=== PATIENT | female | born 1960 | race Caucasian/White ===

== ENCOUNTER 2018-11-05 09:09 | Inpatient (IN) ==
[2018-11-05 09:35] LABS: BASO# 0.04 X1000 (0.0-0.2); BASO% 0.7 % (0.0-0.8); EOS# 0.03 X1000 (0.0-0.7); EOS% 0.5 % (0.0-10.0); HEMATOCRIT 42.7 % (37.0-47.0); HEMOGLOBIN 13.8 g/dL (12.0-16.0); IMM GRAN# 0.01 X1000 (0.0-0.04); IMM GRAN% 0.2 % (0.0-0.5); LYMPH# 1.44 X1000 (1.2-3.4); LYMPH% 23.8 % (20.5-51.1); MCHC 32.3 g/dL (33-37); MONO# 0.59 X1000 (0.11-0.59); MONO% 9.7 % (1.7-9.3); MPV 10.4 FL (7.4-10.4); NEUT# 3.95 X1000 (1.4-6.5); NEUT% 65.1 % (42.2-75.2); PLT 320 X1000 (130-400); RBC 4.45 XMIL (4.2-5.4); RDW 15.6 % (11.5-14.5); WBC 6.06 X1000 (4.8-10.8)
--- NOTE | 2018-11-05 09:47 | PROVIDER DOCUMENTATION ---
HPI-General Adult - General Chief Complaint: Altered Mental Status Stated Complaint: ALTERED MENTAL STATUS Time Seen by Provider: 11/05/18 09:29 Source: patient, family Allergies/Adverse Reactions: Patient Allergies Allergy/AdvReac Type Severity Reaction Status Date / Time codeine Allergy Severe ANAPHYLAXIS Verified 11/05/18 09:15 Home Medications: Home Medication List Medication Instructions Recorded Confirmed Last Taken Type Aspirin/Acetaminophen [Goody's 1 packet PO BID 11/05/18 11/05/18 Unknown History Body Pain Powder Pkt] Potassium Chloride 10% Liquid 20 meq PO DAILY #240 udc 11/07/18 Unknown Rx - History of Present Illness -Gen Adult Nature of Presenting Problems: 58yof present to ER with daughter with c/o frontal headache x 2 years. Reports this is daily, denies pain at present. Also reports last 6 months she has been confused and "losing days". Pt denies any recent trauma. Daughter reports hx of salicylate toxicity due to taking an "adult dose aspirin". Pt A&Ox4 at present. Location of Pain/Injury: reports: head Pain Radiation: reports: no radiation Quality of Pain: reports: aching, throbbing Onset/Duration: reports: other (2 years) Timing: reports: gone now, intermittent Associated Symptoms: reports: dizziness, headaches, malaise. denies: arm pain, back/neck pain, chest pain, fever/chills, nausea, shortness of breath, vomiting Review of Systems - Adult - REVIEW OF SYSTEMS - ADULT Constitutional: reports: no symptoms reported. denies: chills, fever Eyes: reports: no symptoms reported Ears, Nose, Mouth & Throat: reports: no symptoms reported. denies: ear pain, tinnitus Cardiovascular: reports: no symptoms reported. denies: chest pain Respiratory: reports: no symptoms reported. denies: shortness of breath Gastrointestinal: reports: no symptoms reported. denies: nausea, vomiting Genitourinary: reports: no symptoms reported Musculoskeletal: reports: no symptoms reported Integumentary: reports: no symptoms reported Neurological: reports: see HPI, dizziness/vertigo, headache/migraines. denies: numbness, paresthesia, slurred speech, syncope Psychiatric: reports: no symptoms reported Endocrine: reports: no symptoms reported Hematologic/Lymphatic: reports: no symptoms reported Allergic/Immunologic: reports: no symptoms reported All Other Systems: Reviewed and Negative Past History - Adult - PAST MEDICAL HISTORY-ADULT Review of Records: reports: Old Records Reviewed, Nursing Assessment Review, Medications Reviewed, Social history reviewed & non-contributory. Major Childhood Illnesses: reports: denies history Cardiovascular: reports: denies history Respiratory: reports: COPD Gastrointestinal: reports: denies history Obstetrical/Gynecological: reports: denies history Genitourinary: reports: denies history Musculoskeletal: reports: denies history Neurological: reports: denies history Psychiatric: reports: depression Endocrine/Immune: reports: denies history Other Conditions: reports: denies history - PRIOR SURGERIES/PROCEDURES Surgical/Procedure History: reports: other (esophageal ) - IMMUNIZATION STATUS Childhood Immunizations: See Nurse Assessment Flu Vaccine: See Nurse Assessment - FAMILY HISTORY Family History: reviewed, not pertinent Physical Exam-General - PHYSICAL EXAM-ADULT Initial Vital Signs Reviewed: Yes - CONSTITUTIONAL General Appearance: alert, no apparent distress, thin (very) - EYES Eyes: PERRL/EOMI, pink conjunctivae - HEAD, EARS, NOSE, MOUTH & THROAT HENMT: moist mucous membranes, normal ENT inspection. negative: angioedema - NECK Neck: non-tender, full range of motion, supple, normal inspection. negative: C- spine tenderness, lymphadenopathy, meningismus - RESPIRATORY Respiratory: lungs clear, normal breath sounds, no respiratory distress, no accessory muscle use - CARDIOVASCULAR Cardiovascular: regular rate, rhythm - GASTROINTESTINAL (ABDOMEN) Abdominal Exam: normal bowel sounds - LYMPHATIC Lymphatic: no adenopathy - MUSCULOSKELETAL Back Exam: normal inspection Extremity: normal range of motion, normal gait, normal inspection, normal capillary refill. negative: deformity, erythema - SKIN Integumentary: normal color, warm/dry. negative: diaphoresis, jaundice, pallor - NEUROLOGIC Neurologic: grossly normal, no motor/sensory deficits - PSYCHIATRIC Psych/Mental Status: normal mood/affect, normal thought content, normal thought process, oriented x 3 Progress - PLAN OF CARE/RESULTS Progress/Plan/Lab Results: Vital Signs - 8 hr 11/05/18 09:10 Temperature 98.7 F Pulse Rate 97 H Respiratory Rate 18 Blood Pressure 129/79 O2 Sat by Pulse Oximetry 98 Laboratory Results - last 24 hr 11/05/18 11/05/18 09:30 09:35 WBC 6.06 RBC 4.45 Hgb 13.8 Hct 42.7 MCV 96.0 MCH 31.0 MCHC 32.3 L RDW Std Deviation 15.6 H Plt Count 320 MPV 10.4 Immature Gran % (Auto) 0.2 Neut % (Auto) 65.1 Lymph % (Auto) 23.8 Morris % (Auto) 9.7 H Eos % (Auto) 0.5 Baso % (Auto) 0.7 Immature Gran # (Auto) 0.01 Neut # (Auto) 3.95 Lymph # (Auto) 1.44 Morris # (Auto) 0.59 Eos # (Auto) 0.03 Baso # (Auto) 0.04 POC Glucose 121 H Orders Category Date Time Status CT HEAD W/O CONTRAST [CT] Stat Exams 11/05/18 09:42 Ordered ACETAMINOPHEN [TDM] Stat Lab 11/05/18 09:42 Uncollected ALCOHOL BLOOD Stat Lab 11/05/18 09:42 Uncollected CBC WITH DIFF [HEME] Stat Lab 11/05/18 09:30 Completed CK PROFILE [SP CHEM] Stat Lab 11/05/18 09:42 Uncollected CMP [COMPREHENSIVE METABOLIC PANEL] [CHEM] Stat Lab 11/05/18 09:30 Received SALICYLATES [TDM] Stat Lab 11/05/18 09:42 Uncollected TROPONIN T Stat Lab 11/05/18 09:42 Ordered URINE DRUG SCREEN PL Stat Lab 11/05/18 09:42 Uncollected ua [URINALYSIS PL W/POSS RFLX CULT] [URINALYSIS] Stat Lab 11/05/18 09:38 Ordered EKG [EKG] Stat Ther 11/05/18 09:17 Ordered Result Diagrams: 11/07/18 04:55 11/07/18 04:55 - REASSESSMENT Reassessment #1 Time Reassessed: 10:30 (reviewed results with pt and plan for admission) - EKG 1 Time of EKG reading by physician:: 09:32 EKG Read and Signed by:: Adam Espana EKG Interpretation (*Must complete 3 of following elements*): Abnormal Rate: 69 Rhythm: NSR, possible L atrial enlargement - CT/MRI 1 CT Study: Head Impression: See EMR Report (FINDINGS: The ventricles and sulci are normal in size and contour. No intracranial mass or hemorrhage. The skull is intact. The sinuses mastoids and middle ears are clear. IMPRESSION: Negative exam. This exam was performed using automated exposure control, adjustment of mA or kV according to patient size, and/or use of iterative reconstruction technique Electronically signed by Nas Jo 11/05/2018 10:17 AM) - CONSULTS/PCP/HOSPITALIST Notification #1 *Consult/PCP/Hospitalist*: Dr Talbert Time Discussed: 10:48 (requests call Poison Control) Consult Disposition: Will see in ED, Admit Departure - Departure Date of Disposition Decision: 11/05/18 Time of Disposition Decision: 10:24 DIAGNOSIS: Hyponatremia Acetylsalicylic acid (aspirin) overdose Qualifiers: Encounter type: initial encounter Injury intent: accidental or unintentional Qualified Code(s): T39.011A - Poisoning by aspirin, accidental (unintentional), initial encounter Altered mental status Qualifiers: Altered mental status type: unspecified Qualified Code(s): R41.82 - Altered mental status, unspecified Disposition: ADMITTED INPATIENT 09 Certified Medical Emergency: Emergent Condition: Fair - Critical Care Note This patient required my direct & personal management of CC.: No Attestation - Physician/ JEISON Attestation Patient care was provided by Advanced Practice Provider:: Yes Advanced Practice Provider:: Ayden Vu Advanced Practice Provider documentation review:: The Mid-level provider documentation, treatment plan and medical decision making was reviewed by the physician who agrees with all treatment and medical decision making by the P. The physician spent face to face time with patient:: No Advanced Practice Provider documentation review:: Supervising physician onsite and consulted in the evaluation and care of this patient. The physician did not have a face to face encounter with the patient.
[2018-11-05 09:55] LABS: AGAP 12; ALBUMIN 4.5 g/dL (3.5-5.0); ALKALINE PHOSPHATASE 60 U/L (32-104); BUN 26 mg/dL (8-22); CHLORIDE 101 mmol/L (98-107); COSMO 285; CREATININE 0.6 mg/dL (0.5-0.9); ESTIMATED GFR > 60; GLUCOSE 114 mg/dL (70-104); GOT 25 U/L (10-30); GPT 15 U/L (10-36); POTASSIUM 2.8 mmol/L (3.5-5.1); SODIUM 140 mmol/L (136-145); TCO2 27 mmol/L (25-35); TOTAL PROTEIN 7.5 g/dL (6.3-8.3)
[2018-11-05 10:02] LABS: BILIRUBIN URINE NEGATIVE (NEGATIVE); BLOOD URINE TRACE (NEGATIVE); CLARITY CLEAR (CLEAR); COLOR YELLOW; GLUCOSE URINE NEGATIVE (NEGATIVE); KETONE URINE 1+(Small) mg/dL (NEGATIVE); LEUKOCYTES URINE 1+ (NEGATIVE); NITRITE URINE NEGATIVE (NEGATIVE); PH URINE 6.5; PROTEIN URINE 1+(30 mg/dL) mg/dL (NEGATIVE); URINE BACTERIA 1+ /HFP; URINE CAST NONE SEEN /LPF; URINE CRYSTAL NONE SEEN /HPF; URINE EPITHELIAL CELLS <10 /HPF (<10); URINE RBC <10 /HPF (<10); URINE SOURCE CLEAN CATCH; URINE YEAST NONE SEEN /HPF; UROBILINOGEN URINE 4 mg/dL
[2018-11-05 10:10] LABS: UR AMPHETAMINES QUAL NONE DETECTED (NONE DETECT); UR BARBITUATES QUAL NONE DETECTED (NONE DETECT); UR BENZODIAZEPIN QUAL PRESUMPTIVE POSITIVE (NONE DETECT); UR CANNABINOIDS QUAL NONE DETECTED (NONE DETECT); UR COCAINE QUAL NONE DETECTED (NONE DETECT); UR METHADONE QUAL NONE DETECTED (NONE DETECT); UR METHAMPHETAMINE QUAL NONE DETECTED (NONE DETECT); UR OPIATES QUAL NONE DETECTED (NONE DETECT); UR OXYCODONE QUAL NONE DETECTED (NONE DETECT); UR PCP QUAL NONE DETECTED (NONE DETECT); UR PROPOXYPHENE QUAL NONE DETECTED (NONE DETECT); UR TCA QUAL NONE DETECTED (NONE DETECT)
[2018-11-05 10:10] LABS: ACETAMINOPHEN 4.7 ug/mL (10-30); SALICYLATES 19.96 mg/dL (3-10)
--- NOTE | 2018-11-05 10:14 | EKG Report ---
Test Performed on : 11/05/2018 09:32:25 AM Test Reason : AMS Blood Pressure : / mmHG Vent. Rate : 069 BPM Atrial Rate : 069 BPM P-R Int : 144 ms QRS Dur : 096 ms QT Int : 404 ms P-R-T Axes : 065 005 044 degrees QTc Int : 432 ms Normal sinus rhythm. Possible Left atrial enlargement RSR' or QR pattern in V1 suggests right ventricular conduction delay Cannot rule out Anterior infarct , age undetermined Abnormal ECG No previous ECGs available Unconfirmed Result
--- NOTE | 2018-11-05 10:19 | Diag Imaging Result Doc PS360 ---
CT HEAD W/O CONTRAST - 11/05/2018 INDICATION: ams, headache COMPARISON: 06/14/2015 FINDINGS: The ventricles and sulci are normal in size and contour. No intracranial mass or hemorrhage. The skull is intact. The sinuses mastoids and middle ears are clear. IMPRESSION: Negative exam. This exam was performed using automated exposure control, adjustment of mA or kV according to patient size, and/or use of iterative reconstruction technique Electronically signed by Nas Jo 11/05/2018 10:17 AM
[2018-11-05] MEDS ORDERED: POTASSIUM CHLORIDE 40 MEQ in NS 1,000 ML IV ONE (10:23)
[2018-11-05 11:55] LABS: BE 2.3 mmoll (-2.0-2.0); BLOOD TYPE VENOUS; HCO3-(ACT) 25.6 mmoll (22-27); PCO2(98.6) 43 mmHg (40-60); PO2(98.6) 27 mmHg (30-55); SAMPLE BLOOD; SAO2 56.5 % (40.0-85.0); pH(98.6) 7.41 (7.32-7.43)
[2018-11-05 12:01] LABS: AGAP 12; BUN 25 mg/dL (8-22); CALCIUM 8.6 mg/dL (8.8-10.2); CHLORIDE 104 mmol/L (98-107); COSMO 287; CREATININE 0.4 mg/dL (0.5-0.9); ESTIMATED GFR > 60; GLUCOSE 94 mg/dL (70-104); POTASSIUM 2.8 mmol/L (3.5-5.1); SODIUM 142 mmol/L (136-145); TCO2 26 mmol/L (25-35)
[2018-11-05 12:09] LABS: URINE SOURCE CLEAN CATCH
[2018-11-05 12:12] LABS: CLARITY CLEAR (CLEAR); COLOR YELLOW
[2018-11-05 12:13] LABS: BILIRUBIN URINE NEGATIVE (NEGATIVE); BLOOD URINE TRACE (NEGATIVE); GLUCOSE URINE NEGATIVE (NEGATIVE); KETONE URINE 2+(Moderate) mg/dL (NEGATIVE); LEUKOCYTES URINE 1+ (NEGATIVE); NITRITE URINE NEGATIVE (NEGATIVE); PH URINE 6.5; PROTEIN URINE 1+(30 mg/dL) mg/dL (NEGATIVE); UROBILINOGEN URINE 4 mg/dL
[2018-11-05 12:20] LABS: URINE BACTERIA 1+ /HFP; URINE CAST NONE SEEN /LPF; URINE CRYSTAL NONE SEEN /HPF; URINE EPITHELIAL CELLS <10 /HPF (<10); URINE RBC <10 /HPF (<10); URINE YEAST NONE SEEN /HPF
[2018-11-05] MEDS ORDERED: ZOFRAN IV PRN (13:14)
[2018-11-05] MEDS ORDERED: SODIUM CHLORIDE 0.9% INJ SCH (13:14)
[2018-11-05] MEDS: PEPCID IV SCH (14:57)
--- NOTE | 2018-11-05 17:32 | HISTORY AND PHYSICAL ---
PRIMARY CARE PROVIDER: None. CHIEF COMPLAINT: Altered mental status. HISTORY OF PRESENT ILLNESS: Ms. Junior is a 58-year-old female who carries a past medical history of esophageal strictures, status post dilatations, COPD, situational depression, chronic headaches, gastritis, anemia, and tobacco abuse. The patient reports that she has been having some delusions, headache, and dizziness and she lost 2 days this week. Per the daughter, this has been ongoing for more than a year. Only home medication she takes is Goody powders 4 to 5 on any given day. She denies any bleeding issues. No bright red or dark tarry stools. She has not been coughing up any coffee-grounds emesis or bright red blood. No nosebleeds. Her only complaint was a frontal lobe headache for the past 2 years, as well as some intermittent issues with swallowing. That is why she does not take pills and relies on her Goody Powders. She has a history of salicylate toxicity after taking adult aspirin. Workup in the ED revealed a salicylate level of 19. Recheck was down to 15. She did have a potassium of 2.8, which is being replenished. Patient states she is not able to swallow any pills. However, she is positive for benzodiazepine, and Poison Control was alerted. We continue to follow their orders. The goal is to keep the potassium above 4 as well as the urine pH above 7.5. Urine pH is currently 6.5. Potassium is 2.8. Ms. Junior is currently alert and oriented, follows commands, moves all extremities, and answers all questions appropriately. She will be admitted to [facility] for further evaluation and treatment. Head CT was a negative exam. PAST MEDICAL HISTORY: 1. 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 2. Esophageal stricture status post dilatations. 3. COPD. 4. Gastritis. 5. Anemia. 6. Situational depression. 7. Chronic headache. PAST SURGICAL HISTORY: 1. Esophageal dilatations x2. 2. Endometriosis surgery. SOCIAL HISTORY: She smokes a pack a day. No alcohol or illicit drug use. She is disabled. She is and has 4 children. ALLERGIES: Codeine, with anaphylaxis. HOME MEDICATIONS: Goody powders. REVIEW OF SYSTEMS: Twelve-point review of systems completed and negative except for those mentioned in HPI. PHYSICAL EXAMINATION: VITAL SIGNS: Temperature is 98.4 degrees, heart rate 59, respirations 16, blood pressure 118/58, O2 is 98% on room air. GENERAL: Ms. Junior is a 58, thin, frail-appearing, female, lying on the bed in no acute distress. HEENT: Atraumatic, normocephalic. PERRL. NECK: Supple. Trachea midline. CARDIOVASCULAR: S1, S2 appreciated. No murmurs, gallops, rubs noted. RESPIRATORY: Lung sounds clear bilaterally. GI: Soft, nontender, nondistended. Positive bowel sounds in 4 quadrants. EXTREMITIES: Lower extremities negative for edema. Bilateral pedal pulses are palpable. DIAGNOSTIC DATA: Head CT negative exam. EKG, normal sinus rhythm. ASSESSMENT AND PLAN: 1. Salicylate toxicity. Poison Control has been contacted. We are following their recommendations. Try to keep her urine pH above 7.5 as well as her potassium greater than 4. She does report some delusional with headache and dizziness with loss of 2 days. Her toxicity appears to be chronic as she has been taking 4 to 5 Goody powders per day for several years now with a H/O salicylate toxicity in the past. We will continue IV fluids with KCl. Monitor her serum salicylate level as well as her urine pH and potassium. 2. Hypokalemia. Continue with supplementation. 3. Clinical dehydration. We will continue with IV fluids. 4. Intermittent dysphagia. The patient does have history of esophageal stricture with dilatations x2. We will do a bedside swallow and do a diet per their recommendations. 5. Anemia. Hemoglobin and hematocrit is currently stable. 6. Chronic obstructive pulmonary disease, not in exacerbation. 7. History of gastritis. We will do IV PPI b.i.d. 8. Further recommendations to follow physician evaluation, laboratory, and diagnostic data. Dictated by MARIALUISA Yadav for Jose Anne MD cc: Jose Anne MD [facility]
[2018-11-05] MEDS: NS + KCL 20 MEQ 1,000 ML IV SCH (18:49)
--- NOTE | 2018-11-06 01:09 | HISTORY AND PHYSICAL ---
CHIEF COMPLAINT: Altered mental status. HISTORY OF PRESENT ILLNESS: The patient is a 58-year-old male who presented to the ER via her family. She apparently has had a headache for the past 2 years and frequently over takes medications. She has apparently been taking large amounts of Goody powders lately. The daughter notes that she had some altered mental status and brought her to the ER where upon lab work she was noted to have an elevated salicylate level. We will admit her to the hospital, place her on protocol, and we will follow. cc: Jose Anne MD
[2018-11-06] MEDS: NS + KCL 20 MEQ 1,000 ML IV SCH ×3 (02:29→22:14)
[2018-11-06] MEDS: PEPCID IV SCH ×2 (02:30→14:00)
[2018-11-06 06:23] LABS: BASO# 0.03 X1000 (0.0-0.2); BASO% 0.6 % (0.0-0.8); EOS# 0.04 X1000 (0.0-0.7); EOS% 0.9 % (0.0-10.0); HEMATOCRIT 38.1 % (37.0-47.0); HEMOGLOBIN 11.9 g/dL (12.0-16.0); IMM GRAN# 0.01 X1000 (0.0-0.04); IMM GRAN% 0.2 % (0.0-0.5); LYMPH# 1.23 X1000 (1.2-3.4); LYMPH% 26.2 % (20.5-51.1); MCH 30.4 PG (27-31); MCHC 31.2 g/dL (33-37); MCV 97.4 FL (81-99); MONO# 0.51 X1000 (0.11-0.59); MONO% 10.9 % (1.7-9.3); NEUT# 2.88 X1000 (1.4-6.5); NEUT% 61.2 % (42.2-75.2); PLT 240 X1000 (130-400); RBC 3.91 XMIL (4.2-5.4); RDW 15.6 % (11.5-14.5)
[2018-11-06 06:44] LABS: AGAP 9; ALBUMIN 3.5 g/dL (3.5-5.0); ALKALINE PHOSPHATASE 46 U/L (32-104); BUN 13 mg/dL (8-22); CHLORIDE 110 mmol/L (98-107); COSMO 286; CREATININE 0.3 mg/dL (0.5-0.9); ESTIMATED GFR > 60; GLUCOSE 84 mg/dL (70-104); GOT 19 U/L (10-30); GPT 10 U/L (10-36); MAGNESIUM 1.6 mg/dL (1.5-2.7); POTASSIUM 3.3 mmol/L (3.5-5.1); SODIUM 144 mmol/L (136-145); TCO2 24 mmol/L (25-35); TOTAL PROTEIN 5.8 g/dL (6.3-8.3)
[2018-11-06] MEDS ORDERED: KLOR-CON PO ONE (06:56)
[2018-11-06] MEDS ORDERED: POTASSIUM CHLORIDE 20% LIQUID PO ONE (09:34)
[2018-11-06 16:40] LABS: AGAP 9; BUN 7 mg/dL (8-22); CHLORIDE 110 mmol/L (98-107); COSMO 278; CREATININE 0.4 mg/dL (0.5-0.9); ESTIMATED GFR > 60; GLUCOSE 103 mg/dL (70-104); POTASSIUM 3.6 mmol/L (3.5-5.1); SODIUM 140 mmol/L (136-145); TCO2 22 mmol/L (25-35)
--- NOTE | 2018-11-07 01:00 | PROGRESS NOTE ---
DATE: 11/06/2018 SUBJECTIVE: The patient notes that she is feeling a lot better. Denies any fevers or chills currently. Denies headaches or blurred vision. PHYSICAL EXAMINATION: Vital Signs: Reviewed. Temperature 97.8 degrees, pulse 67, respiratory rate 18, BP 123/62. General: The patient is awake, currently in no distress. HEENT: Normocephalic. Neck: Supple. Cardiovascular: Regular rate. No murmurs. Chest: Clear and nonlabored. Extremities: Moves all extremities. Neurologic: No changes. ASSESSMENT: 1. Salicylate toxicity. 2. Hypokalemia, we will replace. 3. Dehydration. 4. Chronic anemia. 5. History of gastritis. PLAN: Overall the patient is continuing to improve. We will replace potassium. Continue to follow. Plan per Poison Control. Hopefully home over the next day or 2. cc: Jose Anne MD
[2018-11-07] MEDS: PEPCID IV SCH (01:53)
[2018-11-07] MEDS: NS + KCL 20 MEQ 1,000 ML IV SCH (05:09)
[2018-11-07 06:42] LABS: HEMATOCRIT 36.8 % (37.0-47.0); HEMOGLOBIN 11.6 g/dL (12.0-16.0); MCH 30.4 PG (27-31); MCHC 31.5 g/dL (33-37); MCV 96.6 FL (81-99); MPV 10.8 FL (7.4-10.4); RBC 3.81 XMIL (4.2-5.4); WBC 3.99 X1000 (4.8-10.8)
[2018-11-07 06:48] LABS: AGAP 9; ALBUMIN 3.6 g/dL (3.5-5.0); ALKALINE PHOSPHATASE 46 U/L (32-104); BUN 4 mg/dL (8-22); CALCIUM 8.1 mg/dL (8.8-10.2); CHLORIDE 109 mmol/L (98-107); COSMO 278; CREATININE 0.3 mg/dL (0.5-0.9); ESTIMATED GFR > 60; GLUCOSE 89 mg/dL (70-104); GOT 17 U/L (10-30); GPT 9 U/L (10-36); POTASSIUM 3.5 mmol/L (3.5-5.1); SODIUM 141 mmol/L (136-145); TCO2 24 mmol/L (25-35); TOTAL PROTEIN 5.7 g/dL (6.3-8.3)
[2018-11-07 07:15] VITALS: BP 138/75
[2018-11-07] MEDS ORDERED: PNEUMOVAX 23 IM ONE (09:00)
--- NOTE | 2018-11-08 07:57 | DISCHARGE SUMMARY ---
ADMISSION DATE: 11/05/2018 DISCHARGE DATE: 11/07/2018 PERTINENT PROCEDURES: Head CT. Negative exam. DISCHARGE DIAGNOSES: 1. Salicylate toxicity, resolved. 2. Hypokalemia, improving. 3.5 on the day of discharge. He will be sent home on liquid potassium. 3. Dehydration. The patient was hydrated with IV fluids resolved. 4. Chronic anemia stable. 5. History of gastritis and esophageal stricture. The patient will need to follow up as an outpatient once she gets her Medicare. HOSPITAL COURSE: Briefly, Ms. Junior is a 58-year-old female with a past medical history of esophageal stricture status post dilatation, COPD, situational depression, chronic headache, gastritis, anemia and tobacco abuse. She reported that for quite some time her daughters report maybe 2 years, she has had some issues with chronic headaches so she takes 4 to 5 Goody powders per day secondary to her not being able to swallow pills. She reported some delusions, headache, and dizziness, and she lost 2 days this past week. She was found to have a toxic salicylate level. Poison Control was contacted. Labs were ordered per their orders. The salicylate level is now back to normal. Her potassium has stabilized. She has had constant ringing in her ears for years now. We believe it is because of all the Goody Powders she has ingested over the years. She has had a stable hospital course, and is being discharged back home today to follow up with her PCP. VITAL SIGNS: Temperature 97.6, heart rate 63, respirations 16, blood pressure 138/75, 02 99% on room air. DISCHARGE DIET: Regular. DISCHARGE MEDICATIONS: Potassium chloride 10% liquid 20 mEq p.o. daily. PERTINENT PROCEDURES: Head CT was a negative exam. FOLLOW UP: Ms. Junior is being discharged back home with self care. She has been educated to avoid taking so many Goody Powders. She had been encouraged to find and follow up with her Primary Care Provider now that her Medicaid is about to kick in as well as follow up with GI with her issues of intermittent dysphagia. She should take her potassium as prescribed. She can return to the ED or call 911 for any worsening of symptoms. Dictated by MARIALUISA Yadav for Jose Anne MD cc: [facility]
--- NOTE | 2018-11-08 14:38 | DISCHARGE SUMMARY ---
ADMISSION DATE: 11/05/2018 DISCHARGE DATE: 11/07/2018 ADDENDUM: Patient seen and examined by myself. Full note dictated and discussed with nurse practitioner. On discharge, patient is awake, alert. She is in no distress. Her salicylate level is back to normal. Potassium has still been low normal despite being given normal saline with potassium. Therefore, I going to discharge her home with oral potassium. She will follow up in a week to recheck at her primary care. cc: Jose Anne MD
== END 2018-11-07 09:46 | disposition home or self-care (01) | DRG 948 ==
LOC: P.ED 09:09 → P.MEDSURG 12:50
PROVIDERS: ATTEND Family Medicine